=== PATIENT | female | born 1995 | race Two or more races ===

== ENCOUNTER 2024-11-12 11:04 | Emergency (ER) | payer MEDICAID, SELFPAY ==
[2024-11-12 11:17] VITALS: BP 135/79; PULSE 98; RESP 19; TEMP 37.1; O2SAT 98; BMI 27.4
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
[2024-11-12] MEDS: HYDROcodone/APAP 5/325 TABLET 1 TAB PO (13:33)
== END 2024-11-12 14:04 | disposition home or self-care (01) ==
PROVIDERS: Emergency Provider Family Medicine
DX: O9A.211 Injury, poisoning and certain other consequences of external causes complicating pregnancy, first trimester (principal); S00.83XA Contusion of other part of head, initial encounter; Z3A.01 Less than 8 weeks gestation of pregnancy; Y04.2XXA Assault by strike against or bumped into by another person, initial encounter
CPT/HCPCS: 70450; 70486; 72125; 99284; A9270

== ENCOUNTER 2025-03-19 21:45 | Emergency (ER) | payer MEDICAID, SELFPAY ==
[2025-03-19 21:46] VITALS: PULSE 108; RESP 24; BMI 29.9
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
[2025-03-19 21:50] VITALS: BP 169/79; PULSE 105; RESP 18; TEMP 37.2; O2SAT 97
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
--- NOTE | 2025-03-19 22:00 | PC.NURSE ---
SHERIFF Namrata CHENG AT BEDSIDE RECEIVING PTS STORY FOR POLICE REPORT. SKYLAR GAVE THIS NURSE A CASE NUMBER OF [id number]
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
[2025-03-19 22:13] LABS: Basophils # (Auto) 0.1 Thou/mm3 (0.0-0.2); Basophils % (Auto) 1 % (0-2.5); Eosinophils # (Auto) 0.2 Thou/mm3 (0.0-0.5); Eosinophils % (Auto) 3 % (0-10); Hematocrit 42.4 % (36.0-46.0); Hemoglobin 14.0 g/dL (12.0-16.0); Immature Granulocytes Auto 0.02 Thou/mm3 (0.00-0.00); Lymphocytes # (Auto) 2.0 Thou/mm3 (1.0-4.8); Lymphocytes % (Auto) 31 % (10-50); Mean Corpuscular HGB Conc 33.0 g/dl (31.0-37.0); Mean Corpuscular Hemoglobin 30.7 pg (25.0-35.0); Mean Corpuscular Volume 93 fL (80-100); Monocytes # (Auto) 0.4 Thou/mm3 (0.0-0.8); Monocytes % (Auto) 6 % (0-12); Neutrophils # (Auto) 3.9 Thou/mm3 (1.8-7.7); Neutrophils % (Auto) 59 % (37-80); Nucleated Red Blood Cell # 0.00 Thou/mm3 (0.00-0.00); Nucleated Red Blood Cell % 0 /100 WBC (0); Platelet Count 238 Thou/mm3 (140-440); RDW Standard Deviation 45.7 fL (36.4-46.3); Red Blood Count 4.56 Miln/mm3 (4.00-5.20); White Blood Count 6.6 Thou/mm3 (3.6-11.0)
[2025-03-19] MEDS: DIPHTH,PERTUSS(ACELL),TET VAC 0.5 ML SYR- ADULT IMi (22:15)
[2025-03-19 22:21] LABS: Amphetamine/Methamp Scrn,U Negative (Negative); Barbiturate Screen,Urine Negative (Negative); Benzodiazepines Screen,Urine Negative (Negative); Benzoylecgonine Screen, Ur Negative (Negative); Fentanyl Screen,Urine Negative (Negative); Opiate Screen,Urine Negative (Negative); THC Screen,Urine Negative (Negative)
[2025-03-19 22:29] LABS: INR 1.0 (0.9-1.3); Prothrombin Time 10.3 Seconds (9.0-12.2)
[2025-03-19 22:32] LABS: Alanine Aminotransferase 11 U/L (10-49); Albumin, Serum 5.1 gm/dL (3.5-5.0); Albumin/Globulin Ratio 1.7 (1.2-2.2); Alkaline Phosphatase 91 U/L (46-116); Anion Gap 11 (7-16); Aspartate Amino Transferase 22 U/L (0-34); BUN/Creatinine Ratio 9 Ratio (12-20); Bilirubin,Total 0.4 mg/dL (0.3-1.2); Blood Urea Nitrogen 6 mg/dL (9-23); Calcium 9.7 mg/dL (8.3-10.6); Calcium (Corrected) 9.7 mg/dL (8.5-10.1); Carbon Dioxide 25.7 mMol/L (20.0-31.0); Chloride 106 mMol/L (98-107); Creatinine (Component) 0.7 mg/dL (0.6-1.3); Estimated Creatinine Clearance 105.6 mL/min (>60); Globulin 3.0 gm/dL (2.3-3.5); Glucose 103 mg/dL (74-106); Osmolality,Calculated 282 (275-295); Potassium 3.6 mMol/L (3.4-5.1); Sodium 143 mMol/L (136-145); Total Protein 8.1 gm/dL (5.7-8.2); eGFR > 60 See Note
[2025-03-19 22:46] LABS: HCG,Qualitative Serum Negative
[2025-03-20 00:07] VITALS: BP 156/80; PULSE 106; RESP 18; TEMP 36.9; O2SAT 99
[2025-03-20] MEDS: LIDOCAINE INJ PF 1% 5 ML VIAL IM (00:39)
--- NOTE | 2025-03-20 00:40 | PC.NURSE ---
LIDOCAINE 1% WAS GIVEN BY DR GUZMAN AT BESIDE AND ONLY 2ML OF MEDICATION WAS USED.
[2025-03-20] MEDS: AMOXICILLIN/POT CLAV 875 TABLET 1 TAB PO (01:00)
--- NOTE | 2025-03-20 07:21 | PC.NURSE ---
PT LEFT LAST NIGHT AMA. CT SCAN RESULTS SHOW 3MM HYPERDENSITY IN R BRAINSTEM AND CANNOT EXCLUDE SMALL HEMORRHAGE. DR MERCHANT INFORMED. CONTACTED PT TO RETURN FOR REPEAT CT SCAN PER DOCTORS ORDERS.
== END 2025-03-20 01:28 | disposition left against medical advice (07) ==
PROVIDERS: Emergency Provider Emergency Medicine; PCP Family Medicine
DX: S01.81XA Laceration without foreign body of other part of head, initial encounter (principal); S00.31XA Abrasion of nose, initial encounter; S59.902A Unspecified injury of left elbow, initial encounter; S99.912A Unspecified injury of left ankle, initial encounter; R93.0 Abnormal findings on diagnostic imaging of skull and head, not elsewhere classified; X95.8XXA Assault by other firearm discharge, initial encounter; Y92.009 Unspecified place in unspecified non-institutional (private) residence as the place of occurrence of the external cause; Z23 Encounter for immunization; Z53.29 Procedure and treatment not carried out because of patient's decision for other reasons
CPT/HCPCS: 12013; 36415; 70450; 70486; 73080; 73610; 80053; 80307; 84703; 85025; 85610; 90715; 96372; 99283; J3490; A9270

== ENCOUNTER 2025-03-20 09:08 | Emergency (ER) | payer MEDICAID, SELFPAY ==
--- NOTE | 2025-03-20 | XR_ITS ---
Examinations: MRI Brain without intravenous contrast. MRA brain without intravenous contrast. MRA carotids without intravenous contrast 3-D vascular reconstructions Date and time of exam: March 20, 2025, 1011 hours INDICATIONS: Onset headaches beginning yesterday, suspicious for small area of hemorrhage in the right brainstem on CT brain scan March 19, 2025 Technique: Multiple axial and sagittal images of the brain have been obtained MRA brain carotid images without contrast obtained, including 3-D postprocessing, vascular maximum intensity projection images Findings: Sellaturcica is not enlarged. The optic chiasm and infundibular stalk are not remarkable. Prepontine and interpeduncular cisterns are not enlarged. No localized enlargement of the medulla or dirk. Fourth ventricle and cerebellar tonsils normal in position. Subacute hemorrhage is not seen. Fourth ventricle is midline. Mass in the cerebellopontine angle region is not evident. 7th and 8th nerve complexes exhibits symmetry. Globes are symmetrical with no retro-orbital mass. Increased white matter signal not seen Diffusion-weighted images demonstrate no focus of restricted diffusion Mass-effect upon the ventricular system is not identified. MRA carotid images no significant carotid stenoses. MRA brain images no large vessel occlusions Impression: Negative for acute hemorrhage mass effect or midline shift No acute infarct No MR findings of demyelinating disease No cerebral large vessel arterial occlusions
[2025-03-20 09:31] VITALS: BP 109/72; PULSE 85; RESP 16; TEMP 36.8; O2SAT 99; BMI 27.1
--- NOTE | 2025-03-20 09:40 | PD.EDRME ---
Rapid Medical Screening Exam RME Arrival date/time: 03/20/25 09:08 29-year-old female presents to the Emergency Department for complaint of headache patient was about yesterday and had abnormality on CT scan was recommended to come back today for reevaluation Chief Complaint: Headache Vital signs: Vital Signs Temperature 98.3 F 03/20/25 09:31 Pulse Rate 85 03/20/25 09:31 Respiratory Rate 16 03/20/25 09:31 Blood Pressure 109/72 03/20/25 09:31 Pulse Oximetry (%) 99 03/20/25 09:31 Oxygen Delivery Method Room Air 03/20/25 09:31 Vital signs reviewed by provider: Yes Exam: On exam patient does appear to be to having a headache patient does have photophobia Clinical Impression: Imaging ordered
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
[2025-03-20 13:15] VITALS: BP 107/76; PULSE 76; RESP 18; TEMP 36.9; O2SAT 100
== END 2025-03-20 13:15 | disposition home or self-care (01) ==
PROVIDERS: Emergency Provider Emergency Medicine; PCP Family Medicine
DX: R51.9 Headache, unspecified (principal); Y09 Assault by unspecified means
CPT/HCPCS: 70544; 99282